=== PATIENT | male | born 2000 | race Caucasian/White ===

== ENCOUNTER 2018-06-19 20:47 | Emergency (ER) | payer BC, OTHER, SELFPAY ==
[2018-06-19 20:50] VITALS: BP 115/63; PULSE 89; RESP 18; TEMP 36.8; O2SAT 100; BMI 26.2
--- NOTE | 2018-06-19 20:55 | RAD_ITS ---
STUDY: X-RAY - LEFT WRIST REASON FOR EXAM: Male, 17 years old. Trauma TECHNIQUE: 3 view(s) of the wrist were obtained. COMPARISON: None. FINDINGS: Normal visualized distal radius and ulna. Normal radiocarpal articulation. Normal distal radioulnar articulation. Normal carpal bones. Normal carpal articulations. Normal carpometacarpal articulation of the thumb. Normal second through fifth carpometacarpal articulations. Normal visualized metacarpal bones. The soft tissue structures are unremarkable. RAD/Wrist min 3 Views IMPRESSION: Normal x-ray examination of the wrist. Electronically Signed: Eric Belcher MD at 21:14 EDT , Service support ,
[2018-06-19 21:33] VITALS: BP 122/78; PULSE 70; RESP 14; O2SAT 99
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
[2018-06-19 22:43] VITALS: BP 133/74; PULSE 70; RESP 14; O2SAT 99
== END 2018-06-19 22:44 | disposition home or self-care (01) ==
PROVIDERS: Emergency Provider Emergency Medicine; Family Provider Family Medicine; PCP Family Medicine
DX: S63.502A Unspecified sprain of left wrist, initial encounter (principal); V00.131A Fall from skateboard, initial encounter; Y93.51 Activity, roller skating (inline) and skateboarding; Y92.9 Unspecified place or not applicable; Y99.9 Unspecified external cause status
CPT/HCPCS: 73110; 99282

== ENCOUNTER 2018-07-20 23:10 | Emergency (ER) | payer BC, OTHER, SELFPAY ==
[2018-07-20 23:11] VITALS: BP 132/81; PULSE 106; RESP 20; TEMP 37; O2SAT 99; BMI 27.2
[2018-07-20] MEDS: Naproxen 500 MG Tablet PO (23:37)
[2018-07-20] MEDS: HYDROcodone Bitartrate/Apap 5/325 Tablet PO (23:49)
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
--- NOTE | 2018-07-21 00:31 | ED.DEP ---
ED Disposition - Plan for ED Patient: Chief Complaint: Lower Extremity Injury Instructions: ED Sprain Ankle W X Ray, ED Contusion Lower Ext, ED Contusion Hip Prescriptions: Naproxen [Naprosyn] 500 mg PO BID PRN #20 tab Referrals: Efrain Escalante MD [Primary Care Provider] -
[2018-07-21 01:27] VITALS: BP 125/60; PULSE 90; RESP 16
== END 2018-07-21 01:28 | disposition home or self-care (01) ==
PROVIDERS: Emergency Provider Emergency Medicine; Family Provider Family Medicine; PCP Family Medicine
DX: S50.01XA Contusion of right elbow, initial encounter (principal); S80.01XA Contusion of right knee, initial encounter; S70.01XA Contusion of right hip, initial encounter; S90.31XA Contusion of right foot, initial encounter; S90.01XA Contusion of right ankle, initial encounter; V00.131A Fall from skateboard, initial encounter; Y93.51 Activity, roller skating (inline) and skateboarding; Y92.9 Unspecified place or not applicable; Y99.9 Unspecified external cause status
CPT/HCPCS: 73564; 73610; 73630; 99284

== ENCOUNTER → 2019-10-12 12:26 | Outpatient (CLI) | payer BC, SELFPAY ==
[2019-10-12 11:50] VITALS: BMI 27.2
--- NOTE | 2019-10-12 12:28 | RAD_ITS ---
STUDY: X-RAY - ORBITS REASON FOR EXAM: Male, 19 years old. I trauma, pain TECHNIQUE: 5 view(s) of the orbits were obtained. COMPARISON: None. FINDINGS: Normal bilateral orbits without a metallic orbital foreign body. Normal visualized facial bones. Normal paranasal sinuses. The soft tissue structures are unremarkable. RAD/Orbits Min 4 Views IMPRESSION: No orbital fracture. Electronically Signed: Danial Trevino MD at 12:36 EST Tel , Service support ,
[2019-10-12 15:37] LABS: Bacteria 0 SEEN /hpf (None Seen); Squamous Epithelial Cells - UA 0 SEEN /hpf (0-5); White Blood Cells 0 SEEN /hpf (0-5)
[2019-10-12 16:18] LABS: Color, Urine Yellow (Yellow); Glucose, Dipstick Normal (Normal); Ketone-Dipstick Negative (Negative); Leukocyte Esterase-Dipstick Negative /ul (Negative); Nitrite-Dipstick Negative (Negative); Occult Blood-Urine 50 /ul (Negative); Protein-Dipstick Negative (Negative); Specific Gravity, Urine 1.015 (1.002-1.030); Urine Bilirubin Dipstick Negative (Negative); Urine Clarity Clear (Clear); Urine Urobilinogen Normal (Normal); Urine pH 6.5 (5.0 - 8.0)
[2019-10-12 18:19] LABS: Mucous, Urine 2+ /hpf (<or=2+); Red Blood Cells-Urine 0-5 SEEN /hpf (0-5)
== END ==
PROVIDERS: Family Provider Family Medicine; PCP Family Medicine; Referring Provider Physician Assistant Surgical; Visit Provider Physician Assistant Surgical
DX: R60.0 Localized edema (principal); R31.9 Hematuria, unspecified
CPT/HCPCS: 70200; 81001; 87086

== ENCOUNTER 2022-02-15 15:58 | Outpatient (CLI) | payer BC, SELFPAY ==
--- NOTE | 2022-02-15 16:01 | RAD_ITS ---
STUDY: X-RAY CHEST REASON FOR EXAM: Male, 21 years old. Chest wall pain, left TECHNIQUE: Frontal and lateral views COMPARISON: None. FINDINGS: The lungs are clear and expanded. There is no demonstrated pleural abnormality. Normal size heart. Normal mediastinum and evelina. Normal visualized pulmonary arteries. Normal visualized aortic arch and descending thoracic aorta. Normal visualized thoracic spine. Normal visualized ribs, clavicles, and shoulders. There is no demonstrated abnormality of the visualized soft tissue structures of the upper abdomen. RAD/Chest PA and Lateral IMPRESSION: Normal x-ray examination of the chest. Electronically Signed: Miles Abdalla DO at 17:43 EDT Reading Location ID and State: [facility] / [place] Tel [phone], Service support ,
== END 2022-02-15 23:59 | disposition home or self-care (01) ==
PROVIDERS: PCP Family Medicine; Referring Provider Physician Assistant; Visit Provider Physician Assistant
DX: R07.89 Other chest pain (principal)
CPT/HCPCS: 71046

== ENCOUNTER 2022-02-17 11:16 | Emergency (ER) | payer BC, SELFPAY ==
[2022-02-17 11:18] VITALS: BP 148/81; PULSE 73; RESP 17; TEMP 35.8; O2SAT 100; BMI 23.1
--- NOTE | 2022-02-17 11:49 | ED.VIS.CHEST ---
HPI History of Present Illness Chief Complaint: Chest Other Detail of Chief Complaint: Chest wall pain Informant: patient Onset/Context/Timing Onset: Days Timing: Intermittent Quality: Positive for Aching Location: Left Parasternal and Left Chest Current Severity: Mild Maximum Severity: Mild Worsened By: Movement of Arm and Movement of Torso Relieved By: Remaining Still Associated Symptoms: Negative for Nausea, Vomiting, Diaphoresis and Dyspnea Narrative Narrative: 18-year-old male history of autism. States that intermittent chest pain. He had after he got his first Covid shot a year ago. That resolved. Had some intermittently last several days and today while lifting something at work about a 30 pound box of scrap metal he felt pulling in his chest. Denies any shortness of breath. No fever chills or cough. No dyspnea with exertion. He has no history of cardiac disease or surgery. He is never had a DVT or PE. He had no recent travel surgery or immobilization. He is actually seen in the urgent care the other day had a chest x-ray taken which was unremarkable. Prior Similar Symptoms: Yes Recent Illness/Hospitalization: No CVD Risk Factors: Negative for Hypertension, Diabetes and Hypercholesterolemia PE Risk Factors: Negative for Recent Travel/Surgery, Recent Immobilization, Prior DVT or PE and OCP + Smoking + >/=35 TAD Risk Factors: Negative for Marfan's Syndrome and Hypertension [facility] Medical History Left-sided chest pain Shortness of breath Home Medications NK 10/12/19 [History Last Taken Unknown] Allergy/AdvReac Type Severity Reaction Status Date / Time amoxicillin AdvReac Hives Verified 02/17/22 11:17 sulfamethoxazole AdvReac Hives Verified 02/17/22 11:17 [From Bactrim] trimethoprim [From Bactrim] AdvReac Hives Verified 02/17/22 11:17 Social History Smoking Status: Never smoker alcohol intake: current alcohol intake frequency: a few times a month ROS ROS ED ROS Narrative Left chest pain. Review of Systems ROS Unobtainable: Denies due to encephalopathy Constitutional Constitutional ED: Denies fever(s) Eyes Eyes: Denies none ENT ENT ED: Denies ear pain Cardiovascular Cardiovascular: Reports as per HPI and chest pain Respiratory/Chest Respiratory/Chest: Denies cough or dyspnea Gastrointestinal Gastrointestinal: Denies abdominal pain, diarrhea, nausea or vomiting Genitourinary Genitourinary ED: Denies dysuria Musculoskeletal Musculoskeletal: Denies myalgias Integumentary Denies rash Neurologic Neurologic: Denies headache(s) Psychiatric Psychiatric: Denies depression Endocrine Endocrinology: Denies polyuria Hematologic/Lymphatic Hematologic/Lymphatic: Denies easy bruising Allergic/Immunologic Allergic/Immunologic ED: Denies urticaria EXAM Physical Exam Narrative Exam Narrative: Well-appearing 21-year-old male. Vital signs stable afebrile. Pulse ox percent room air no signs hypoxia. H EENT exam unremarkable. Neck nontender. No JVD. No lymphadenopathy. Lungs clear to auscultation bilaterally. Heart regular rate and rhythm rate about 70 no murmur. Chest wall reproducibly tender on the left chest consistent with a myofascial strain. There is no bony tenderness. No subcu air crepitance. Abdomen soft nontender. Moving all 4 extremities. Equal symmetrical radial pulses. 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 Calves are nontender without edema or cords. Neurologically is awake and alert. No chest wall deficit. No signs any pectoralis tear. No bruising. Const Vital Signs: 02/17/22 11:18 02/17/22 12:04 Temperature 96.5 F L Temperature Source Temporal Pulse Rate 73 Respiratory Rate 17 Respiratory Effort Normal Non-Labored Respiratory Pattern Normal Blood Pressure 148/81 H Blood Pressure Mean 103 Pulse Ox 100 Oxygen Delivery Method Room Air Positive well nourished and well developed; Negative for obese, cachectic, contractures or unkempt General Appearance ED: well developed and NAD; Negative for unkempt, cachectic, contractures or pallor Nutritional Appearance: Negative for cachectic or obese HEENT Reports moist mucous membranes normocephalic and atraumatic; Negative for trauma or tenderness Eyes PERRL and EOMs intact bilaterally General Eye ED: Negative for pale conjunctiva or scleral icterus Neck no lymphadenopathy, supple and no JVD General: Negative for tenderness Chest Wall inspection of chest normal; Negative for palpation of chest normal Chest Narrative: Left chest wall tenderness consistent with a myofascial strain. Chest: tenderness Resp normal respiratory effort and clear to auscultation bilaterally Effort and Inspection: respiratory distress Auscultation: Negative for rales, rhonchi or wheezes Cardio regular rate, regular rhythm, S1 normal heart sound, S2 normal heart sound and no murmurs Rate: Negative for tachycardic GI normal to inspection, nondistended, normoactive bowel sounds, soft to palpation, non-tender, non-distended and no masses; Negative for hepatosplenomegaly Auscultation: Negative for hyperactive bowel sounds Palpation: Negative for splenomegaly Back/Spine no CVA tenderness and no thoracic nor lumbar tenderness General Back: Negative for CVA tenderness Extremity normal to inspection General Extremety ED: Negative for edema, pulses abnormal or tenderness General Extremity: Negative for edema or pulses abnormal Neuro oriented x3 Sensorium / Orientation: awake, alert, oriented to person, oriented to place and oriented to time Motor Exam: strength 5/5 throughout Psych mental status grossly normal Appearance: Negative for unkempt Attitude: No agitated Mood & Affect: Negative for depressed or tearful Skin no rashes or lesions noted and no wounds General Skin Exam: Negative for jaundice or pallor MDM MDM MDM Narrative Medical decision making narrative: 21-year-old male with chest wall discomfort. Appears to be myofascial strain. I reviewed his chest x-ray the other day from the urgent care which was negative. Normal cardiac silhouette. Normal mediastinum. Normal ribs and lungs. EKG will be obtained. Will be discharged home with Motrin and Tylenol for pain ice to his chest wall. Repeat exam patient doing well. We discussed his test results will be discharged home. Treated as a chest wall strain. Radiography Chest X-Ray - ED: 1 View, Read by ED Physician, Heart, Lungs, Mediastinum, Bony Structures, No Acute Disease and Chronic Changes Diagnostic Testing: Clinical Impression(s) from Imaging Studies Chest X-Ray 02/17/22 11:50 IMPRESSION: Normal x-ray examination of the chest. Electronically Signed: Maxi Argueta MD at 12:10 EDT , I reviewed his prior outpatient chest x-ray was negative. Chest x-ray today was also negative. Normal cardiac silhouette and lung hood. Rhythm Strip Rhythm Strip: Sinus Rhythm Rate: 57 Ectopy: None EKG Initial EKG: Attestation: I personally reviewed and interpreted this EKG as follows: Interpretation: Sinus Rhythm and Sinus Bradycardia Comments: Sinus bradycardia rate of 57 no acute signs of IL or ischemia. Prior EKG tracings: not available for review Discharge Plan Triage Chief Complaint: Chest Other ED Provider: Carlos Georges Dx/Rx/DC Orders Clinical Impression: Chest wall muscle strain Instructions: ED Strain Chest Wall Prescriptions: No Action NK RF: 0 Primary Care Provider: Efrain Escalante Referrals: Efrain Escalante MD [Primary Care Provider] - 1 Week if not improving Activity Restrictions/Additional Instructions: Motrin for pain and inflammation and Tylenol for pain. Cool compresses to chest wall. You have strained a muscle in your chest wall. This should progressively get better if not follow-up with your doctor. Disposition Disposition: Home, Self Care
--- NOTE | 2022-02-17 11:50 | RAD_ITS ---
STUDY: X-RAY CHEST REASON FOR EXAM: Male, 21 years old. Cp TECHNIQUE: Single AP portable view of the chest. COMPARISON: Comparison is made with prior study dated 02/15/2022. FINDINGS: The lungs are clear and expanded. There is no demonstrated pleural abnormality. Normal size heart. Normal mediastinum and evelina. Normal visualized pulmonary arteries. Normal visualized aortic arch and descending thoracic aorta. Normal visualized thoracic spine. Normal visualized ribs, clavicles, and shoulders. There is no demonstrated abnormality of the visualized soft tissue structures of the upper abdomen. RAD/Chest 1 View (Portable) IMPRESSION: Normal x-ray examination of the chest. Electronically Signed: Maxi Argueta MD at 12:10 EDT ,
--- NOTE | 2022-02-17 12:01 | EKG12_ITS ---
Test Reason : CHESTOTHER Blood Pressure : / mmHG Vent. Rate : 057 BPM Atrial Rate : 057 BPM P-R Int : 120 ms QRS Dur : 102 ms QT Int : 394 ms P-R-T Axes : 050 062 018 degrees QTc Int : 383 ms Sinus bradycardia Otherwise normal ECG Confirmed by NAVEED LITTLE, ALIZE ([id number]), graphic editor HARRY SMITH ([id number]) on 02/19/2022 2:11:58 PM Referred By: BARTOLO Confirmed By:NAVIN LUCIO MD
--- NOTE | 2022-02-17 12:07 | NURSING ---
NO OLD EKGS
[2022-02-17 12:27] VITALS: BP 128/69; PULSE 84; RESP 16; O2SAT 98
== END 2022-02-17 12:27 | disposition home or self-care (01) ==
PROVIDERS: Emergency Provider Emergency Medicine; PCP Family Medicine; Visit Provider Emergency Medicine
DX: S29.011A Strain of muscle and tendon of front wall of thorax, initial encounter (principal); X50.0XXA Overexertion from strenuous movement or load, initial encounter; F84.0 Autistic disorder
CPT/HCPCS: 71045; 93005; 99282

== ENCOUNTER → 2023-08-10 | Outpatient (CLI) | payer OTHER, SELFPAY ==
--- NOTE | 2023-08-10 09:50 | RAD_ITS ---
STUDY: X-RAY - LUMBAR SPINE REASON FOR EXAM: Male, 22 years old. Low back pain TECHNIQUE: 5 view(s) of the lumbar spine were obtained. COMPARISON: None FINDINGS: Normal lumbar lordosis. There is no substantial scoliosis. There is a normal alignment of the vertebrae. Normal vertebral bodies and endplates. Normal disc space heights. The soft tissue structures are unremarkable. RAD/L/S Spine Min 4 Views IMPRESSION: Normal x-ray examination of the lumbar spine. Electronically Signed: Maxi Argueta MD at 11:13 EDT ,
== END | disposition home or self-care (01) ==
PROVIDERS: PCP Family Medicine; Referring Provider Physician Assistant Surgical; Visit Provider Physician Assistant Surgical
DX: S39.012A Strain of muscle, fascia and tendon of lower back, initial encounter (principal); X58.XXXA Exposure to other specified factors, initial encounter
CPT/HCPCS: 72110

== ENCOUNTER 2024-05-08 23:32 | Emergency (ER) | payer BC, SELFPAY ==
[2024-05-08 23:33] VITALS: BP 132/82; PULSE 64; RESP 18; TEMP 36.9; O2SAT 99; BMI 23.8
[2024-05-09] MEDS: Bupivacaine Mpf 0.5% 30 ML VIAL INFILT (00:31)
[2024-05-09] MEDS: Clindamycin HCl 150 MG Capsule 300 MG PO (00:32)
--- NOTE | 2024-05-09 01:07 | EDS_ITS ---
HPI History of Present Illness Chief Complaint: Dental Informant: patient Narrative Narrative: Left lower gum pain. Since this morning. Has been using ibuprofen with no relief. History of autistic disorder per patient. History of periodontal disease. Has not seen a dentist in a while. Intermittent bleeding of the gums. He reports he has had partial wisdom tooth removal however cannot recall if upper or lower. No trouble swallowing. No fevers. He states his father was able to find a dentist today in his network for which she will call tomorrow. Amoxicillin allergy along with sulfa allergy causing hives. Prior similar symptoms: Yes PFSH [facility] Medical History Sprain of right hand Right wrist sprain Shortness of breath Left-sided chest pain Home Medications ?Medication ?Instructions ?Recorded ?Last Taken ?Type clindamycin HCl 300 mg capsule 300 mg PO TID #20 caps 05/09/24 Unknown Rx Allergy/AdvReac Type Severity Reaction Status Date / Time amoxicillin AdvReac Hives Verified 05/08/24 23:33 sulfamethoxazole (From AdvReac Hives Verified 05/08/24 23:33 Bactrim) trimethoprim (From Bactrim) AdvReac Hives Verified 05/08/24 23:33 Family History Other Alcohol abuse Cancer Surgical History No pertinent past surgical history Social History Smoking Status: Current every day smoker tobacco type: e-cigarettes alcohol intake: current alcohol intake frequency: a few times a month [facility] ROS ED Constitutional Constitutional ED: Denies chills, fever(s) or sweats Eyes Eyes: Denies change in vision ENT ENT ED: Reports other Details: Gum pain ; Denies dysphagia or sore throat Cardiovascular Cardiovascular: Denies chest pain, leg edema, palpitations or racing heartbeat Respiratory/Chest Respiratory/Chest: Denies cough, dyspnea or dyspnea on exertion Gastrointestinal Gastrointestinal: Denies abdominal pain, diarrhea, nausea or vomiting Genitourinary Genitourinary ED: Denies dysuria, hematuria or urinary frequency Musculoskeletal Musculoskeletal: Denies back pain, extremity pain or neck pain Integumentary Denies rash or wounds Neurologic Neurologic: Denies headache(s), paresthesias or weakness EXAM Physical Exam Const Vital Signs: 05/08/24 23:33 Temperature 98.5 F Temperature Source Temporal Pulse Rate 64 Respiratory Rate 18 Blood Pressure 132/82 H Blood Pressure Mean 98 Pulse Ox 99 Oxygen Delivery Method Room Air Positive well nourished and well developed General Appearance ED: well developed and NAD HEENT Reports moist mucous membranes HEENT Narrative: Swelling of left lower gums above region of wisdom teeth tooth. There is no bleeding. No sublingual edema. No trismus. No dental caries noted. No tenderness to tooth percussion of 15. normocephalic and atraumatic Eyes EOMs intact bilaterally and conjunctivae normal General Eye ED: Yes normal appearance of both eyes Neck no lymphadenopathy and supple General: Negative for tenderness Chest Wall Chest: Negative for tenderness Resp normal respiratory effort and normal air movement Effort and Inspection: symmetric chest movement; Negative for respiratory distress Cardio regular rate, regular rhythm and no murmurs Peripheral Pulses: pulses 2+ throughout GI normal to inspection, nondistended, normoactive bowel sounds and non-tender Palpation: Negative for guarding or rebound tenderness present Back/Spine no CVA tenderness and no thoracic nor lumbar tenderness Extremity normal to inspection General Extremety ED: Negative for edema or tenderness General Extremity: Negative for edema Neuro oriented x3 and no sensory deficits noted Sensorium / Orientation: awake and alert Skin no rashes or lesions noted and no wounds MDM MDM MDM Narrative Medical decision making narrative: Interventions / MDM: Differential diagnosis: Gingivitis Diagnosis considered but do not suspect: No clinical Lennox angina My EKG interpretation: N/A Imaging independently reviewed and interpreted by myself: N/A External documents reviewed: N/A Test considered but not ordered:N/A ED course: Nontoxic focal gum swelling. History of peritonsillar disease. Started on clindamycin. He is concerned of discomfort at 11 PM therefore discussed dental block for which she agreed. Bupivacaine was used for inferior alveolar block with good analgesic control. To continue Tylenol or Motrin. Prescription clindamycin sent to his pharmacy. Additional dental list was given for follow-up if needed. Procedure note: Verbal consent. Normal sterile conditions. 4 x 4 gauze were used to hold if left buccal. 25-gauge needle 1.5 inch long, directed at the inferior alveolar or on the left side. Total 4 cc of 0.5% bupivacaine used for injection. He had immediate improvement of symptoms. He tolerated the procedure well. Re-evaluation: stable Disposition discussed with patient/family/significant other: Patient Case discussed with consulting clinician: N/A This note was generated with [employer] dictation software. It may contain incorrect words, spelling, and punctuation that were not noted in checking the note before signing. Discharge Plan Triage Chief Complaint: Dental ED Provider: Sam Benoit Dx/Rx/DC Orders Clinical Impression: Gingivitis Instructions: Understanding Gingivitis Prescriptions: New clindamycin HCl 300 mg capsule 300 mg PO TID Qty: 20 0RF Stand Alone Forms: ED Work / School Excuse Primary Care Provider: Efrain Escalante Referrals: Efrain Escalante MD [Primary Care Provider] - Activity Restrictions/Additional Instructions: Gingivitis was swelling. Status post dental block with improvement. Take and finish antibiotics prescribed. Follow-up with your dentist or find dentist on dental list for evaluation and definitive treatment plans. Print Language: Danish Disposition Disposition: Home, Self Care Discharge Date/Time: 05/09/24 01:18
== END 2024-05-09 01:18 | disposition home or self-care (01) ==
PROVIDERS: Emergency Provider Emergency Medicine; PCP Family Medicine; Visit Provider Emergency Medicine
DX: K05.10 Chronic gingivitis, plaque induced (principal); F84.0 Autistic disorder; F17.290 Nicotine dependence, other tobacco product, uncomplicated; Z88.0 Allergy status to penicillin; Z88.2 Allergy status to sulfonamides
CPT/HCPCS: 64400; 64999; 99282